=== PATIENT | female | born 1990 | race Asian ===

== ENCOUNTER 2017-03-03 15:40 | Emergency (ER) | payer OTHER ==
[2017-03-03 15:48] VITALS: BP 136/79
--- NOTE | 2017-03-03 15:51 | UC ---
Cardiac HPI - HPI Summary HPI Summary: 26 year old female presents with complains of severe epigastric pain. - History of Current Complaint Chief Complaint: UCAbdominalPain Stated Complaint: STOMACH & CHEST PAIN Time Seen by Provider: 03/03/17 15:51 Hx Obtained From: Patient Hx Last Menstrual Period: 02/26/17 Onset/Duration: Sudden Onset Initial Severity: Severe Current Severity: Severe Chest Pain Location: Discrete at: - epigastrium Aggravating Factor(s): Position Alleviating Factor(s): Position, Nothing - Allergy/Home Medications Allergies/Adverse Reactions: Allergies Allergy/AdvReac Type Severity Reaction Status Date / Time No Known Allergies Allergy Verified 03/03/17 15:48 Home Medications: Home Medications Folic Acid TAB* [Folvite TAB*] 1 mg PO DAILY 03/03/17 [History Confirmed ] metFORMIN* [Glucophage 1000 MG TAB *] 1,000 mg PO DAILY 03/03/17 [History Confirmed 03/03/17] PMH/Surg Hx/FS Hx/Imm Hx Previously Healthy: Yes - Surgical History Surgical History: None - Social History Alcohol Use: None Substance Use Type: None Smoking Status (MU): Never Smoked Tobacco Review of Systems Constitutional: Negative Skin: Negative Eyes: Negative ENT: Negative Respiratory: Negative Cardiovascular: Negative Gastrointestinal: Abdominal Pain Genitourinary: Negative Motor: Negative Neurovascular: Negative Musculoskeletal: Negative Neurological: Negative Psychological: Negative All Other Systems Reviewed And Are Negative: Yes Physical Exam Triage Information Reviewed: Yes Appearance: Well-Appearing Vital Signs: Initial Vital Signs Temp 36.8 C 03/03/17 15:45 Pulse 70 03/03/17 15:45 Resp 18 03/03/17 15:45 BP 136/79 03/03/17 15:45 Pulse Ox 100 03/03/17 15:45 Eye Exam: Normal ENT Exam: Normal Dental Exam: Normal Neck exam: Normal Neck: Positive: 1 Respiratory Exam: Normal Cardiovascular Exam: Normal Abdomen Description: Positive: Other: - severe epigastric pain Musculoskeletal Exam: Normal Neurological Exam: Normal Psychological Exam: Normal Skin Exam: Normal - Clinical Impression Provider Diagnoses: severe epigastric pain Discharge - Discharge Plan Condition: Stable Disposition: OTHER Discharge Disposition Comment: patient suggested to go to the er. Patient Education Materials: Acute Abdominal Pain (ED) Referrals: No Primary Care Phys,NOPCP [Primary Care Provider] - Additional Instructions: PATIENT SUGGESTED TO GO TO THE ER FOR SEVERE EPIGASTRIC PAIN
== END 2017-03-03 16:24 ==
LOC: UCEAST 15:40
DX: R10.13 Epigastric pain (principal)
CPT/HCPCS: 93005; 99212; G0463

== ENCOUNTER 2017-03-03 16:41 | Emergency (ER) | payer OTHER ==
[2017-03-03] MEDS ORDERED: Pantoprazole IV* 40 MG IV ONE (17:21)
[2017-03-03] MEDS ORDERED: Ondansetron INJ* 2 MG/ML VIAL IV ONE (17:21)
[2017-03-03] MEDS ORDERED: NS 0.9% 1000 ML* 1,000 ML IV ONE (17:21)
[2017-03-03] MEDS ORDERED: Lidocaine 2% VISCOUS* 15 ML UDC PO ONE (17:22)
[2017-03-03] MEDS ORDERED: Al Hydrox/Mg Hydrox/Simet LIQ* 30 ML UDC PO ONE (17:22)
[2017-03-03 18:25] LABS: Hematocrit 39 % (35-47); Hemoglobin 13.2 g/dl (12.0-16.0); Mean Corpuscular HGB Conc 33 g/dl (31-36); Mean Corpuscular Hemoglobin 29 pg (27-31); Mean Corpuscular Volume 87 fL (80-97); Mean Platelet Volume 9 um3 (7.4-10.4); Red Blood Count 4.54 10^6/ul (4.0-5.4); Red Cell Distribution Width 13 % (10.5-15); White Blood Count 11.7 10^3/ul (3.5-10.8)
[2017-03-03 18:39] LABS: Albumin 4.3 g/dL (3.2-5.2); C Reactive Protein 8.66 mg/L (< 5.00); Calcium 9.3 mg/dL (8.6-10.3); EGFR African American 154.2 (>60); EGFR Non-African American 119.9 (>60); Potassium 3.9 mmol/L (3.5-5.0); Total Bilirubin 0.3 mg/dL (0.2-1.0); Total Protein 7.3 g/dL (6.4-8.9)
--- NOTE | 2017-03-03 18:51 | RAD ---
INDICATION: Abdominal pain. COMPARISON: None TECHNIQUE: Supine and upright views of the abdomen were obtained. FINDINGS: The small bowel and colon appear nondistended. No free intraperitoneal air is seen. No grossly abnormal or pathologic appearing calcifications are noted. Visualized bones are within normal limits for the patient's age. IMPRESSION: Normal abdominal radiograph.
[2017-03-03 19:51] VITALS: BP 109/77
--- NOTE | 2017-03-04 08:41 | ED ---
Devan Mann Nikita, scribed for Andrez Burgess MD on 03/03/17 at 1724 . Abdominal Pain/Female - HPI Summary HPI Summary: This patient is a 26 year old F presenting to ED with a chief complaint of epigastric abdominal pain and acid reflux since this afternoon. The CC is described as tight and burning. The patient rates the pain 6/10 in severity. Symptoms aggravated by nothing. Symptoms alleviated by nothing. Patient reports nausea, burping, and a sour taste in the mouth. Patient denies vomiting and diarrhea. Pt had spicy food (not unusual) at 1230. Pt had a chocolate cookie at 1330. Severe pain by 1500. - History of Current Complaint Chief Complaint: EDAbdPain Stated Complaint: CHEST/STOMACH PAIN Time Seen by Provider: 03/03/17 17:12 Hx Obtained From: Patient Hx Last Menstrual Period: 02/26/17 Onset/Duration: Sudden Onset, Lasting Hours, Still Present Timing: Constant Severity Initially: Moderate Severity Currently: Moderate Pain Intensity: 6 Pain Scale Used: 0-10 Numeric Location: Epigastric Radiates: No Character: Burning, Other: - tight Aggravating Factor(s): Nothing Alleviating Factor(s): Nothing Associated Signs and Symptoms: Positive: Other: - Patient reports nausea, burping, and a sour taste in the mouth. Patient denies vomiting and diarrhea. Allergies/Adverse Reactions: Allergies Allergy/AdvReac Type Severity Reaction Status Date / Time No Known Allergies Allergy Verified 03/03/17 15:48 PMH/Surg Hx/FS Hx/Imm Hx Endocrine/Hematology History: Denies: Hx Diabetes Cardiovascular History: Denies: Hx Coronary Artery Disease, Hx Hypertension History: Reports: Other Problems/Disorders - PCOS Infectious Disease History: No Infectious Disease History: Denies: Traveled Outside the [place] in Last 30 Days - Family History Known Family History: Positive: Hypertension Negative: Cardiac Disease, Diabetes - Social History Alcohol Use: None Substance Use Type: Reports: None Smoking Status (MU): Never Smoked Tobacco Review of Systems Positive: Other - sour taste in the mouth Positive: Abdominal Pain - epigastric, Nausea, Other - acid reflux, burping. Negative: Vomiting, Diarrhea All Other Systems Reviewed And Are Negative: Yes Physical Exam - Summary Physical Exam Summary: GENERAL: Patient is a well-developed and nourished female who is lying comfortable in the stretcher. ~Patient is not in any acute respiratory distress. HEAD AND FACE: Normocephalic and atraumatic. EYES: PERRLA, EOMI x 2, No injected conjunctiva. EARS: Hearing grossly intact. Ear canals and tympanic membranes are WNL. MOUTH: Oropharynx within normal limits. NECK: Supple, trachea is midline, no adenopathy, no JVD. CHEST: Symmetric, no tenderness at palpation LUNGS: Clear to auscultation bilaterally. No wheezing or crackles. CVS: RRR, S1 and S2 present, no murmurs or gallops appreciated. ABDOMEN: Soft, epigastric tenderness. No signs of distention. Positive bowel sounds. No rebound no guarding, and no masses palpated. No abdominal bruit or pulsations. EXTREMITIES: FROM in all major joints, no edema, no cyanosis or clubbing. NEURO: Alert and oriented x 3. No acute neurological deficits. Speech is normal. SKIN: Dry and warm Triage Information Reviewed: Yes Vital Signs On Initial Exam: Initial Vitals Temp Pulse Resp BP Pulse Ox 97.5 F 67 14 121/79 100 03/03/17 16:43 03/03/17 16:43 03/03/17 16:43 03/03/17 16:43 03/03/17 16:43 Vital Signs Reviewed: Yes Diagnostics - Vital Signs Vital Signs Temp Pulse Resp BP Pulse Ox 03/03/17 16:43 97.5 F 67 14 121/79 100 - Laboratory Lab Results: Lab Results 03/03/17 03/03/17 Range/Units 18:16 18:16 WBC 11.7 H (3.5-10.8) 10^3/ul RBC 4.54 (4.0-5.4) 10^6/ul Hgb 13.2 (12.0-16.0) g/dl Hct 39 (35-47) % MCV 87 (80-97) fL MCH 29 (27-31) pg MCHC 33 (31-36) g/dl RDW 13 (10.5-15) % Plt Count 323 (150-450) 10^3/ul MPV 9 (7.4-10.4) um3 Neut % (Auto) 53.9 (38-83) % Lymph % (Auto) 37.4 (25-47) % Will % (Auto) 4.9 (1-9) % Eos % (Auto) 2.6 (0-6) % Baso % (Auto) 1.2 (0-2) % Absolute Neuts (auto) 6.3 (1.5-7.7) 10^3/ul Absolute Lymphs (auto) 4.4 (1.0-4.8) 10^3/ul Absolute Monos (auto) 0.6 (0-0.8) 10^3/ul Absolute Eos (auto) 0.3 (0-0.6) 10^3/ul Absolute Basos (auto) 0.1 (0-0.2) 10^3/ul Absolute Nucleated RBC 0.01 10^3/ul Nucleated RBC % 0.1 Sodium 138 (133-145) mmol/L Potassium 3.9 (3.5-5.0) mmol/L Chloride 107 (101-111) mmol/L Carbon Dioxide 26 (22-32) mmol/L Anion Gap 5 (2-11) mmol/L BUN 9 (6-24) mg/dL Creatinine 0.60 (0.51-0.95) mg/dL Est GFR ( Amer) 154.2 (>60) Est GFR (Non-Af Amer) 119.9 (>60) BUN/Creatinine Ratio 15.0 (8-20) Glucose 109 H (70-100) mg/dL Calcium 9.3 (8.6-10.3) mg/dL Total Bilirubin 0.30 (0.2-1.0) mg/dL AST 18 (13-39) U/L ALT 16 (7-52) U/L Alkaline Phosphatase 54 (34-104) U/L C-Reactive Protein 8.66 H (< 5.00) mg/L Total Protein 7.3 (6.4-8.9) g/dL Albumin 4.3 (3.2-5.2) g/dL Globulin 3.0 (2-4) g/dL Albumin/Globulin Ratio 1.4 (1-3) Lipase 16 (11.0-82.0) U/L Result Diagrams: 03/03/17 18:16 03/03/17 18:16 Lab Statement: Any lab studies that have been ordered have been reviewed, and results considered in the medical decision making process. - Radiology Abdomen XR Radiology Interpretation Completed By: Radiologist - Normal abdominal radiograph. ED physician has reviewed this radiology report and agrees. Abdominal Pain Fem Course/Dx - Course Course Of Treatment: This patient is a 26 year old F presenting to ED with a chief complaint of epigastric abdominal pain and acid reflux since this afternoon. The CC is described as tight and burning. The patient rates the pain 6/10 in severity. Symptoms aggravated by nothing. Symptoms alleviated by nothing. Patient reports nausea, burping, and a sour taste in the mouth. Patient denies vomiting and diarrhea. Pt had spicy food (not unusual) at 1230. Pt had a chocolate cookie at 1330. Severe pain by 1500. In the ED course an IV access was obtained. Patient was placed in a electronic device monitor. Patient was started with IV fluids. She was given Protonix and GI cocktail for the burning pain likely secondary to gastritis and GERD. Labs without any significant abnormality except for WBC 11. ABdominal X ray impression no obstructive bowel gas pattern. Positive increased amount of stool in the colon. After medications patients symptoms have significantly improved. I discussed all the findings and test results with the patient. Patient was instructed to return to the emergency room immediately if any of the symptoms return or worsens. They were explained the possibility of an early abdominal pathology which was not detected at this time despite the physical exam and testing. They understand and agree. Abdominal exam before discharge: Soft, NT. No signs of distention. BS present. No rebound no guarding, and no masses palpated. Patient is alert and oriented and hemodynamically stable. Patient is to follow up with primary care physician in the next 2 to 3 days. Patient agree and understands. - Diagnoses Differential Diagnosis: Positive: Bowel Obstruction, Constipation, Gall Bladder Disease, Peptic Ulcer Disease Provider Diagnoses: Epigastric pain, GERD (gastroesophageal reflux disease), Gastritis Discharge - Discharge Plan Condition: Stable Disposition: HOME Prescriptions: Omeprazole CAP* [Prilosec CAP* 20 MG] 20 mg PO BID #28 Patient Education Materials: Epigastric Pain (ED), Gastritis (ED), Gastroesophageal Reflux Disease (ED) Referrals: No Primary Care Phys,NOPCP [Primary Care Provider] - 3 Days The documentation as recorded by the Devan wilcox Nikita accurately reflects the service I personally performed and the decisions made by , Andrez Burgess MD.
== END 2017-03-03 19:35 | disposition home or self-care (01) ==
LOC: ED 16:41
DX: K21.9 Gastro-esophageal reflux disease without esophagitis (principal); R10.13 Epigastric pain; K29.70 Gastritis, unspecified, without bleeding; R11.0 Nausea
CPT/HCPCS: 36415; 74020; 80053; 83690; 85025; 86140; 96374; 96375; 99284; A9270-GY; J2405